=== PATIENT | female | born 1965 | race American Indian/Alaskan Native ===

== ENCOUNTER 2017-09-11 11:54 | Emergency (ER) | payer OTHER ==
[2017-09-11 11:55] VITALS: BMI 32.9
[2017-09-11 12:22] VITALS: TEMP 98.5
--- NOTE | 2017-09-11 13:32 | C.PDOC ---
History Of Present Illness 52 year old female presents to ED for evaluation headache, and back pain after slip and fall. pt states she "got tangled on something" (+) LOC. Denies fever, vomiting, vision change, change in sensation, or other complaints. - HPI Time Seen by Provider: 09/11/17 13:19 Chief Complaint (Nursing): Trauma History Per: Patient History/Exam Limitations: no limitations Past Medical History Reviewed: Historical Data, Nursing Documentation, Vital Signs Vital Signs: Last Vital Signs Temp 98.5 F 09/11/17 12:17 Pulse 83 09/11/17 16:54 Resp 18 09/11/17 16:54 BP 120/78 09/11/17 16:54 Pulse Ox 98 09/11/17 16:54 - Medical History PMH: Arthritis, Gastritis, HTN, Kidney Stones, Osteoporosis, Chronic Kidney Disease Surgical History: Endoscopy Family History: States: Unknown Family Hx - Social History Hx Alcohol Use: No Hx Substance Use: No - Immunization History Hx Tetanus Toxoid Vaccination: (unk) Hx Influenza Vaccination: (unk) Hx Pneumococcal Vaccination: Yes Review Of Systems Except As Marked, All Systems Reviewed And Found Negative. Constitutional: Negative for: Fever, Chills Musculoskeletal: Positive for: Back Pain Neurological: Positive for: Headache. Negative for: Weakness, Numbness Physical Exam - Physical Exam Appears: Non-toxic, No Acute Distress Skin: Normal Color, Warm, Dry Head: Normacephalic, Tenderness (occipital scalp) Eye(s): bilateral: Normal Inspection Oral Mucosa: Moist Neck: Normal ROM, No Midline Cervical Tenderness, No Paracervical Tenderness, No Step Off Deformity, Supple Chest: Symmetrical Cardiovascular: Rhythm Regular, No Murmur Respiratory: No Accessory Muscle Use, No Rales, No Rhonchi, No Wheezing Gastrointestinal/Abdominal: Soft, No Tenderness Back: No Vertebral Tenderness, Paraspinal Tenderness (paralumbar) Extremity: Normal ROM, No Pedal Edema, No Deformity Neurological/Psych: Oriented x3, Normal Speech ED Course And Treatment O2 Sat by Pulse Oximetry: 97 (RA) Pulse Ox Interpretation: Normal Medical Decision Making Medical Decision Making: xr initialy shows small wedge fx. ct neg. pt asking for d/c advise d outpt fu return precautions. tranlator divya at bedside. Disposition - Disposition Referrals: Trevor Maria MD [Non-Staff] - Disposition: HOME/ ROUTINE Disposition Time: 04:00 Condition: STABLE Additional Instructions: please follow up with specialist. return to er with worsening symptoms or concerns. Prescriptions: Naproxen 500 mg PO BID PRN #14 tab PRN Reason: Pain, Mild (1-3) Instructions: Concussion (ED), Fall Prevention for Older Adults (ED), Head Injury (ED), Back Pain (ED) Forms: [employer] (Albanian) Print Language: PERUVIAN - Clinical Impression Clinical Impression: Head injury, Back pain - Scribe Statement The provider has reviewed the documentation as recorded by the Scribe Dariel Alonzo All medical record entries made by the Scribe were at my direction and personally dictated by me. I have reviewed the chart and agree that the record accurately reflects my personal performance of the history, physical exam, medical decision making, and the department course for this patient. I have also personally directed, reviewed, and agree with the discharge instructions and disposition.
--- NOTE | 2017-09-11 14:18 | CT ---
PROCEDURE: CT HEAD WITHOUT CONTRAST. HISTORY: fall COMPARISON: None available. TECHNIQUE: Axial computed tomography images were obtained through the head/brain without intravenous contrast. Radiation dose: Total exam DLP = 1050.01 mGy-cm. This CT exam was performed using one or more of the following dose reduction techniques: Automated exposure control, adjustment of the mA and/or kV according to patient size, and/or use of iterative reconstruction technique. FINDINGS: HEMORRHAGE: No intracranial hemorrhage. BRAIN: No mass effect or edema. The brizuela-white matter differentiation appears intact. Please note that MRI with diffusion imaging is more sensitive in the detection of acute ischemic event. VENTRICLES: No hydrocephalus. CALVARIUM: Unremarkable. PARANASAL SINUSES: Unremarkable as visualized. No significant inflammatory changes. MASTOID AIR CELLS: Unremarkable as visualized. No inflammatory changes. OTHER FINDINGS: None. IMPRESSION: No acute intracranial pathology identified.
--- NOTE | 2017-09-11 14:21 | RAD ---
PROCEDURE: Radiographs of the Lumbar Spine. HISTORY: Fall COMPARISON: Lumbar spine radiographs performed 06/09/15 FINDINGS: BONES: Alignment appears satisfactory. No listhesis. Mild wedge fracture deformities involving T11 and T12. No acute displaced fracture identified. Mild degenerative changes including tiny anterior osteophyte formation. DISC SPACES: T10-T11 and T11-T12 intervertebral disc space narrowing. OTHER FINDINGS: Moderate constipation. Scattered atherosclerotic calcifications. IMPRESSION: Mild wedge fracture deformities of T11 and T12. T10-T11 and T11-T12 intervertebral disc space narrowing. Moderate constipation.
--- NOTE | 2017-09-11 15:50 | CT ---
PROCEDURE: CT Cervical Spine without contrast HISTORY: <fall> COMPARISON: None available. TECHNIQUE: Axial computed tomography images were obtained of the cervical spine without the use of intravenous contrast. Coronal and sagittal reformatted images were created and reviewed. Radiation dose: Total exam DLP = 519.30 mGy-cm. This CT exam was performed using one or more of the following dose reduction techniques: Automated exposure control, adjustment of the mA and/or kV according to patient size, and/or use of iterative reconstruction technique. FINDINGS: VERTEBRAE: No fracture. Normal alignment. No destructive bony lesion. DISCS/SPINAL CANAL/NEURAL FORAMINA: No significant central canal or neural foraminal stenosis. Discs heights are grossly preserved. PARASPINAL SOFT TISSUES: Unremarkable. OTHER FINDINGS: None. IMPRESSION: Unremarkable CT of the cervical spine.
--- NOTE | 2017-09-11 16:29 | CT ---
CT thoracic spine without IV contrast Indication: Fall Comparison: None available Technique: Noncontrast axial images of the thoracic spine were provided. Sagittal and coronal reformatted images were generated and reviewed. This CT exam was performed using 1 or more of the following dose reduction techniques: Automated exposure control, adjustment of the MAA and/or kV according to patient size, and/or use of iterative reconstruction technique. Total exam DLP: 1104.49 MGy-cm Findings: Small osteophyte formation most prominent at the inferior endplate of T11. Vertebral body heights appear within normal limits. Alignment appears satisfactory. No acute fracture or subluxation identified. Paraspinal soft tissues appear unremarkable. Limited visualization of the intrathoracic and intra-abdominal contents: Mosaic profusion, may reflect small vessel/ airways disease. Diffuse fatty infiltration may reflect hepatic steatosis. Nonobstructing 3 cm left renal calculus. Impression: No acute fracture or subluxation identified. Limited visualization of the intrathoracic and intra-abdominal contents: Mosaic profusion, may reflect small vessel/ airways disease. Diffuse fatty infiltration may reflect hepatic steatosis. Nonobstructing 3 cm left renal calculus.
[2017-09-11 16:55] VITALS: BP 120/78; PULSE 83; RESP 18
[2017-09-11 19:57] VITALS: O2SAT 97
== END 2017-09-11 16:55 | disposition home or self-care (01) ==
LOC: C.ER 11:54
DX: S09.90XA Unspecified injury of head, initial encounter (principal); W01.0XXA Fall on same level from slipping, tripping and stumbling without subsequent striking against object, initial encounter; M54.9 Dorsalgia, unspecified

== ENCOUNTER 2017-10-22 06:31 | Day surgery (SDC) | payer OTHER ==
[2017-10-22] MEDS ORDERED: Lactated Ringer's 1,000 ML IV ONE (07:53)
--- NOTE | 2017-10-22 07:55 | CP.SDSHP ---
Same Day Surgery H & P - History Proposed Procedure: EGD Pre-Op Diagnosis: SEE NOTES - Previous Medical/Surgical History Cardiac: Hypertension Endocrine/Metabolic: Other Misc: Other Pain: 4.Moderate Pain - Allergies Allergies: Allergies enalapril Adverse Reaction (Verified 09/11/17 12:22) COUGH - Physical Exam General Appearance: N Vital Signs: Vital Signs 10/22/17 06:52 Temperature 96 F L Pulse Rate 82 Respiratory 18 Rate Blood Pressure 117/84 O2 Sat by Pulse 97 Oximetry Mental Status: Alert & Oriented x3 Neuro: WNL Heart: Other Lungs: WNL GI: Other - {Optional Preform as Required} Breast: WNL Abdomen: Other Rectal: Other Integument: WNL : WNL Ortho: WNL ENT: WNL - Impression Pt. Evaluated Today:Candidate for Anesthesia & Procedure: Yes - Date & Time Time: 07:55 Short Stay Discharge - Short Stay Discharge Admitting Diagnosis/Reason for Visit: MELENA Disposition: HOME/ ROUTINE
[2017-10-22] MEDS ORDERED: Belladonna-Phenobarbital PO STA (07:56)
[2017-10-22] MEDS ORDERED: Pantoprazole 40 mg EC Tab PO STA (07:56)
[2017-10-22] MEDS ORDERED: Propofol 10 mg/ml Inj (20 ML) ONE (07:57)
[2017-10-22] MEDS ORDERED: Lactated Ringer's 1,000 ML IV SCH (08:15)
[2017-10-22 08:37] VITALS: TEMP 97.1
[2017-10-22 08:49] VITALS: RESP 16
[2017-10-22 10:00] VITALS: BP 126/68; PULSE 63; O2SAT 98
== END 2017-10-22 09:20 | disposition home or self-care (01) ==
LOC: C.ENDO 06:31
PROVIDERS: ATTEND Specialist
DX: K29.00 Acute gastritis without bleeding (principal); E11.9 Type 2 diabetes mellitus without complications; I10 Essential (primary) hypertension; M19.90 Unspecified osteoarthritis, unspecified site; Z79.84 Long term (current) use of oral hypoglycemic drugs; Z79.899 Other long term (current) drug therapy; K44.9 Diaphragmatic hernia without obstruction or gangrene; B96.81 Helicobacter pylori [H. pylori] as the cause of diseases classified elsewhere; K21.0 Gastro-esophageal reflux disease with esophagitis
CPT/HCPCS: 43239; 82948; 88305; 88342; J2001; J2704; J7120

== ENCOUNTER 2018-07-20 07:09 | Day surgery (SDC) | payer OTHER ==
--- NOTE | 2018-07-20 09:26 | CP.SDSHP ---
Same Day Surgery H & P - History Proposed Procedure: EGD Pre-Op Diagnosis: SEE NOTES - Previous Medical/Surgical History Cardiac: Hypertension Endocrine/Metabolic: Diabetes Pain: 4.Moderate Pain - Allergies Allergies: Allergies enalapril Adverse Reaction (Verified 09/11/17 12:22) COUGH - Physical Exam General Appearance: N Vital Signs: Vital Signs 07/20/18 07:41 Temperature 97.4 F L Pulse Rate 64 Respiratory 19 Rate Blood Pressure 121/72 O2 Sat by Pulse 98 Oximetry Mental Status: Alert & Oriented x3 Neuro: WNL Heart: Other Lungs: WNL GI: WNL - {Optional Preform as Required} Breast: WNL Abdomen: Other Rectal: Other Integument: WNL : WNL Ortho: Other ENT: WNL - Impression Pt. Evaluated Today:Candidate for Anesthesia & Procedure: Yes - Date & Time Time: : Short Stay Discharge - Short Stay Discharge Admitting Diagnosis/Reason for Visit: MELENA Disposition: HOME/ ROUTINE
[2018-07-20] MEDS ORDERED: Belladonna-Phenobarbital PO STA (09:28)
[2018-07-20] MEDS ORDERED: Propofol 10 mg/ml Inj (20 ML) ONE (09:30)
[2018-07-20 12:10] VITALS: TEMP 97.8
[2018-07-20 12:12] VITALS: O2SAT 100
[2018-07-20 12:21] VITALS: BP 128/73; PULSE 70; RESP 20
== END 2018-07-20 11:00 | disposition home or self-care (01) ==
LOC: C.ENDO 07:09
PROVIDERS: ATTEND Specialist
DX: K92.1 Melena (principal); K29.70 Gastritis, unspecified, without bleeding
CPT/HCPCS: 43239; 82948; 88305; 88342; J2001; J2704

== ENCOUNTER 2018-08-21 10:10 | Outpatient (CLI) | payer OTHER | END 2018-08-21 10:11 | disposition home or self-care (01) | LOC: C.MRIC 10:10 | DX: M54.9 Dorsalgia, unspecified (principal) ==

== ENCOUNTER 2018-09-22 09:54 | Outpatient (CLI) | payer OTHER | END 2018-09-22 09:55 | disposition home or self-care (01) | LOC: C.LAB 09:54 | DX: E11.65 Type 2 diabetes mellitus with hyperglycemia (principal); Z01.818 Encounter for other preprocedural examination ==